=== PATIENT | female | born 1940 | race Caucasian/White ===

== ENCOUNTER 2017-08-28 09:52 | Outpatient (CLI) | payer MEDICARE, OTHER ==
--- NOTE | 2017-08-28 10:44 | XRAY Report ---
TWO VIEW CHEST: 08/28/2017 CLINICAL INDICATION: Cough. COMPARISON: 02/22/2015. FINDINGS: Frontal and lateral views of the chest demonstrate a normal cardiac silhouette. The lungs are clear. No effusion or pneumothorax is present. IMPRESSION: NORMAL CHEST. NO SIGNIFICANT INTERVAL CHANGE. TD: 08/28/2017 10:43
== END 2017-08-28 09:53 | disposition home or self-care (01) ==
LOC: DI 09:52
PROVIDERS: ATTEND Internal Medicine
DX: R05 Cough (principal)
CPT/HCPCS: 71046

== ENCOUNTER 2021-06-10 09:48 | Emergency (ER) | payer MEDICARE, OTHER ==
--- NOTE | 2021-06-10 11:09 | XRAY Report ---
PROCEDURE: Wrist 4 View RT INDICATIONS: Trauma TECHNIQUE: 4 views of the wrist were acquired. COMPARISON: None. FINDINGS: Bones: There is diffuse osteopenia limiting evaluation. There are curvilinear lucencies within the d istal radius extending to the radiocarpal joint suspicious for a nondisplaced fracture. No displaced fractures or dislocations. There is moderate to severe degeneration at the first carpometacarpal join t. No suspicious bony lesions. Scaphoid view: The scaphoid appears intact. Soft tissues: No suspicious soft tissue calcifications. IMPRESSION: 1. Suspected nondisplaced fracture of the distal radius extending to the radiocarpal joint. The follo w-up study may be performed in 7-10 days for further evaluation or alternatively sectional imaging ma y be performed. 2. Diffuse osteopenia limiting evaluation. 3. Moderate to severe degeneration at the first carpometacarpal joint. Reviewed by: Syd Reveles MD on 06/10/2021 11:08 AM [facility] Approved by: Syd Reveles MD on 06/10/2021 11:08 AM PST Station ID: [id number]
--- NOTE | 2021-06-10 11:17 | ED Physician Documentation ---
History of Present Illness - Stated complaint Stated Complaint: RT WRIST INJURY - Chief complaint Chief Complaint: Trauma Ext - History obtained from History obtained from: Patient - History of Present Illness Timing: Last night Pain level max: 2 Pain level now: 1 - Additonal information Additional information: Patient is an 80-year-old female who presents to the emergency department after a fall in her kitchen last night. She states that that she tripped and fell over the dog. Injured her right hand and wrist. Also has blood on her forehead. She states she did not know that she struck her head. Nothing makes it better or worse. Denies any loss of consciousness. Unknown last tetanus. She states she is not on blood thinners Review of Systems Constitutional: denies: Fever, Chills GI: denies: Vomiting, Diarrhea Skin: denies: Rash Musculoskeletal: denies: Neck pain, Back pain Neurologic: denies: Headache PD PAST MEDICAL HISTORY - Past Medical History Past Medical History: Yes HEENT: Glaucoma Musculoskeletal: Osteoarthritis - Past Surgical History Ortho: Knee replacement - Present Medications Home Medications: Ambulatory Orders Medication Instructions Recorded Confirmed Aspirin Chewable [[place] 324 mg PO ONCE PRN 05/30/13 05/30/13 Aspirin] Bimatoprost 0.03% [Lumigan] 1 drops OPTH QPM 05/30/13 05/30/13 Cholecalciferol (Vitamin D3) 2,000 unit PO 05/30/13 05/30/13 [Vitamin D-3] Multivitamin [Multivitamins] 1 each PO DAILY 05/30/13 05/30/13 - Allergies Allergies/Adverse Reactions: Allergies Allergy/AdvReac Type Severity Reaction Status Date / Time No Known Drug Allergies Allergy Verified 06/10/21 09:59 - Social History Smoking Status: Former smoker PD ED PE NORMAL - Vitals Vital signs reviewed: Yes - General General: Alert and oriented X 3, No acute distress, Well developed/nourished - HEENT HEENT: PERRL, Moist mucous membranes, Other (No scalp hematomas or palpable skull fractures. She does have mild bruising, medial aspect of the periorbital region bilaterally. She also has a small abrasion on the right forehead.) - Neck Neck: Supple, no meningeal sign, No bony TTP, No JVD, C-Spine cleared by NEXUS criteria - Cardiac Cardiac: RRR, Strong equal pulses - Respiratory Respiratory: No respiratory distress, Clear bilaterally - Abdomen Abdomen: Soft, Non tender, Non distended - Derm Derm: Warm and dry - Extremities Extremities: Other (Right wrist and hand - Metacarpal of theThere is bruising over the distal radius and right hand. Pain with movement. Neurovascular intact.) - Neuro Neuro: Alert and oriented X 3 - Psych Psych: Normal mood, Normal affect Results - Vitals Vitals: Vital Signs - 24 hr 06/10/21 06/10/21 06/10/21 09:55 12:44 13:15 Temperature 36.6 C Heart Rate 107 H 95 Respiratory 18 20 18 Rate Blood Pressure 163/90 H 163/96 H O2 Saturation 97 98 Oxygen O2 Source Room air - Rads (name of study) R wrist xray Radiology: Final report received, EMP read contemporaneously, See rad report R hand xray Radiology: Final report received, EMP read contemporaneously, See rad report head Ct Radiology: Final report received, EMP read contemporaneously, See rad report maxillofacial CT Radiology: Final report received, EMP read contemporaneously, See rad report Procedures - Splint (location) Right wrist Splint applied by: Physician, Tech Type of splint: Fiberglass, Short arm, Volar cock up Other: Patient tolerated well, No complications, Neurovascular intact, Sling provided PD MEDICAL DECISION MAKING - ED course Complexity details: reviewed results, re-evaluated patient, considered differential, d/w patient ED course: No acute intracranial abnormality on head CT or maxillofacial CT. No facial fractures. Does appear to have a nondisplaced fracture of the right distal radius. Placed in a splint for this. We will have her follow-up with Ortho for further care. Neurovascularly intact. Ambulating without difficulty. GCS 15. Patient counseled regarding signs and symptoms for which I believe and urgent re-evaluation would be necessary. Patient with good understanding of and agreement to plan and is comfortable going home at this time This document was made in part using voice recognition software. While efforts are made to proofread this document, sound alike and grammatical errors may occur. Departure - Departure Disposition: 01 Home, Self Care Clinical Impression: Distal radius fracture, right Qualifiers: Encounter type: initial encounter Fracture type: closed Fracture morphology: unspecified fracture morphology Qualified Code(s): S52.501A - Unspecified fracture of the lower end of right radius, initial encounter for closed fracture Abrasion of forehead Qualifiers: Encounter type: initial encounter Qualified Code(s): S00.81XA - Abrasion of other part of head, initial encounter Condition: Good Instructions: ED Fx Upper Ext, ED Head Injury Closed Follow-Up: Gail Mello MD [Primary Care Provider] - [facility] [Provider Group] - Within 1 week Comments: Follow-up with orthopedics next week for repeat evaluation of your fracture. They may want to change you into a cast at that time. You can use Motrin or Tylenol as needed for pain. Return if you worsen. Discharge Date/Time: 06/10/21 13:15
[2021-06-10] MEDS: TETANUS/DIPHTHERIA/PERTUSSIS 0.5 ML SYRINGE IM ONE (11:28)
--- NOTE | 2021-06-10 11:49 | XRAY Report ---
PROCEDURE: Hand 3 View RT INDICATIONS: fall, hand pain TECHNIQUE: 3 views of the hand(s) acquired. COMPARISON: None FINDINGS: Bones: No fractures or dislocations. No suspicious bony lesions. Scattered osteoarthritic degenerat jackie changes noted in the hand and wrist. Soft tissues: No suspicious soft tissue calcifications. IMPRESSION: No fracture. No osseous lesion. If there are persistent symptoms or continued clinical concern for pa thology, then repeat plain film radiographs (7-10 days) or advanced imaging (CT, MR, bone scan) shoul d be considered for further evaluation. Reviewed by: Tonya Aguilar MD, PhD on 06/10/2021 11:47 AM [facility] Approved by: Tonya Aguilar MD, PhD on 06/10/2021 11:47 AM [facility] Station ID: [id number]
--- NOTE | 2021-06-10 12:35 | CT Report ---
PROCEDURE: HEAD WO INDICATIONS: fall, head/facial injuries TECHNIQUE: Noncontrast 4.5 mm thick angled axial sections acquired from the foramen magnum to the vertex. For r adiation dose reduction, the following was used: automated exposure control, adjustment of mA and/or kV according to patient size. COMPARISON: None. FINDINGS: Image quality: Excellent. CSF spaces: Basal cisterns are patent. No extra-axial fluid collections. Ventricles are normal in size and shape. Brain: No midline shift. No intracranial masses or hemorrhage. Menon-white matter interface is norm al. Skull and face: Calvarium and visualized facial bones are intact, without suspicious lesions. Sinuses: Visualized sinuses and mastoids are clear. IMPRESSION: No acute intracranial finding. Small midline frontal scalp contusion. Reviewed by: Gabo Simms MD on 06/10/2021 12:34 PM PST Approved by: Gabo Simms MD on 06/10/2021 12:34 PM PST Station ID: [id number]
--- NOTE | 2021-06-10 12:42 | CT Report ---
PROCEDURE: MAXILLOFACIAL WO INDICATIONS: fall, head/facial injuries TECHNIQUE: Noncontrast 1.5 mm thick axial images acquired from the mandible through the frontal sinuses, with co cheryle and sagittal reformatting. For radiation dose reduction, the following was used: automated ex posure control, adjustment of mA and/or kV according to patient size. COMPARISON: None. FINDINGS: Image quality: Excellent. Bones and teeth: Orbital berg are intact. Sinus berg show no fracture or deformity. Nasal bones and septum are intact. Visualized portions of the mandible demonstrate no fractures or subluxation. Zygomatic arches are intact. Pterygoid plates are intact. Visualized portions of the skull base an d auditory canals are intact. Sinuses: Paranasal sinuses are aerated, without fluid levels, mucosal thickening, or mucoceles. Mas toid air cells are aerated. Soft tissues: Midline prefrontal scalp contusion and laceration. IMPRESSION: No acute fracture. Reviewed by: Gabo Simms MD on 06/10/2021 12:40 PM [facility] Approved by: Gabo Simms MD on 06/10/2021 12:40 PM PST Station ID: [id number]
[2021-06-10 12:45] VITALS: BP 163/96
== END 2021-06-10 13:15 | disposition home or self-care (01) ==
LOC: ED 09:48
DX: S52.501A Unspecified fracture of the lower end of right radius, initial encounter for closed fracture (principal); S00.81XA Abrasion of other part of head, initial encounter; W18.31XA Fall on same level due to stepping on an object, initial encounter; Y92.000 Kitchen of unspecified non-institutional (private) residence as the place of occurrence of the external cause; Z23 Encounter for immunization
CPT/HCPCS: 29125; 90471; 99282; 99284

== ENCOUNTER 2021-06-20 07:59 | Outpatient (CLI) | payer MEDICARE ==
--- NOTE | 2021-06-21 14:02 | XRAY Report ---
PROCEDURE: Wrist 3 View RT INDICATIONS: WRIST PAIN TECHNIQUE: 3 views of the wrist were acquired. COMPARISON: Right wrist radiographs 06/10/2021. FINDINGS: Bones: Distal radius fracture with intra-articular extension. There is minimal displacement. The frac ture line demonstrates increased conspicuity due to ostial lysis of healing. No dislocation. Moderat e degenerative change in the wrist. No suspicious bony lesions. Osteopenia. Soft tissues: No suspicious soft tissue calcifications. IMPRESSION: Distal radius fracture with intra-articular extension. Reviewed by: Patel Smith MD on 06/21/2021 2:01 PM [facility] Approved by: Patel Smith MD on 06/21/2021 2:01 PM PST Station ID: [id number]
== END 2021-06-20 08:00 | disposition home or self-care (01) ==
LOC: DI.WOS 07:59
PROVIDERS: ATTEND Physician Assistant
DX: S52.571A Other intraarticular fracture of lower end of right radius, initial encounter for closed fracture (principal)

== ENCOUNTER 2021-07-12 08:09 | Outpatient (CLI) | payer MEDICARE ==
--- NOTE | 2021-07-12 15:51 | XRAY Report ---
PROCEDURE: Wrist 3 View RT INDICATIONS: WRIST FRACTURE TECHNIQUE: 3 views of the wrist were acquired. COMPARISON: X-ray wrist 06/21/2021 FINDINGS: Bones: Comminuted and impacted distal radial fracture with intra-articular extension is again identif ied. Alignment is stable compared to prior exam. Mild healing sclerosis is noted. No suspicious bony lesions. Soft tissues: No suspicious soft tissue calcifications. IMPRESSION: Stable alignment with minimal interval healing of previously identified distal radial fracture. Reviewed by: Priya Jimenez MD on 07/12/2021 3:50 PM PST Approved by: Priya Jimenez MD on 07/12/2021 3:50 PM PST Station ID: [id number]
== END 2021-07-12 08:10 | disposition home or self-care (01) ==
LOC: DI.WOS 08:09
PROVIDERS: ATTEND Physician Assistant
DX: S52.514D Nondisplaced fracture of right radial styloid process, subsequent encounter for closed fracture with routine healing (principal)